=== PATIENT | male | born 1940 | race Hispanic/Latino ===

== ENCOUNTER 2024-06-20 08:47 | Observation (INO) | payer MEDICARE ==
[2024-06-19 09:41] LABS: BASOPHILS # (AUTO) 0.1 (0.0-0.1); EOSINOPHILS # (AUTO) 0.5 (0.0-0.4); EOSINOPHILS % 6.5 % (0.0-6.0); HEMOGLOBIN 17.7 g/dL (14.0-18.0); LYMPHOCYTES # (AUTO) 1.6 (1.0-3.2); LYMPHOCYTES % 21.1 % (18.0-39.1); MEAN CORPUSCULAR HEMOGLOBIN 33.3 pg (28-32); MEAN CORPUSCULAR HGB CONC 34.7 g/dL (31-35); MONOCYTES # (AUTO) 0.6 (0.2-0.8); MONOCYTES % 8.7 % (4.4-11.3); NEUTROPHILS # (AUTO) 4.6 (2.1-6.9); NEUTROPHILS % 62.4 % (38.7-80.0); PLATELET COUNT 216 x10e3/uL (140-360); RED BLOOD COUNT 5.31 x10e6/uL (4.3-5.7); RED CELL DISTRIBUTION WIDTH 12.9 % (11.7-14.4); WHITE BLOOD COUNT 7.35 x10e3/uL (4.8-10.8)
[2024-06-19 10:04] LABS: CALCIUM 9.4 mg/dL (8.4-10.2); CREATININE, SERUM 1.3 mg/dL (0.72-1.25)
[~2024-06-20] VITALS: Ht 160 cm; Wt 68.0 kg
[~2024-06-20 08:47] MED LIST: ALBUTEROL0.63 MG/3 NEB; AVODART0.5 MG PO; CITALOPRAM HBR20 MG PO; FAMOTIDINE20 MG PO; LEVOTHYROXINE88 MCG PO; MEMANTINE HCL10 MG PO; METAMUCIL FIBE3.4 GM PO; TRELEGY ELLIPT1 EACH INH; VITAMIN D250 MCG PO
[2024-06-20 10:13] LABS: ALBUMIN/GLOBULIN RATIO 1.2 (0.8-2.0); ANION GAP 14.1 mmol/L (8-16); BILIRUBIN,TOTAL 0.6 mg/dL (0.2-1.2); CALCIUM 9.4 mg/dL (8.4-10.2); CREATININE, SERUM 1.2 mg/dL (0.72-1.25); POTASSIUM 4.1 mmol/L (3.5-5.1); TOTAL PROTEIN 7.3 g/dL (6.5-8.1)
[2024-06-20 10:15] LABS: INR 1.14; PROTHROMBIN TIME 15.3 seconds (11.9-14.5)
[2024-06-20 10:16] LABS: PARTIAL THROMBOPLASTIN TIME 29.6 seconds (23.8-35.5)
[2024-06-20] MEDS: LACTATED RINGER'S 1,000 ML ONE (10:24)
[2024-06-20] MEDS: PIPERACILLIN/TAZOBACTAM 3.375 GM VIAL ONE (10:24)
[2024-06-20] MEDS ORDERED: ROCURONIUM BROMIDE 1 ML IV ONE (11:40)
[2024-06-20] MEDS ORDERED: SEVOFLURANE INHAL SOLN 250 ML PEN BTL ONE (11:40)
[2024-06-20] MEDS ORDERED: PROPOFOL IV EMULSION 10 MG/ML 20 ML VIAL ONE (11:40)
[2024-06-20] MEDS ORDERED: FENTANYL CITRATE/PF 100MCG/2 ML INJ ONE ×2 (11:40→16:15)
[2024-06-20] MEDS ORDERED: LIDOCAINE HCL 2% LOCAL INJ 5 ML SDV VIAL INJ ONE (11:40)
[2024-06-20] MEDS ORDERED: ACETAMINOPHEN 1000 MG/100 ML 100 ML IV ONE (11:40)
[2024-06-20] MEDS ORDERED: ONDANSETRON HCL INJ 2MG/ML 2ML 2 MG/ML VIAL ONE ×2 (14:02→16:16)
[2024-06-20] MEDS ORDERED: DEXAMETHASONE SOD PHOS INJ 4 MG/ML SDV ONE (14:02)
[2024-06-20] MEDS ORDERED: EPHEDRINE SULFATE INJ 50 MG/ML VIAL ONE ×2 (14:07→14:09)
[2024-06-20] MEDS ORDERED: SUGAMMADEX SODIUM 200 MG/2 ML VIAL IV ONE (16:16)
[2024-06-20] MEDS ORDERED: ACETAMINOPHEN/CODEINE 300MG - 30MG TAB PO PRN (16:30)
[2024-06-20] MEDS ORDERED: DIPHENHYDRAMINE HCL 25 MG CAP PO PRN (16:30)
[2024-06-20] MEDS ORDERED: ACETAMINOPHEN 1000 MG/100 ML IV PRN (16:30)
[2024-06-20] MEDS ORDERED: PHENAZOPYRIDINE HCL 100 MG TAB PO PRN (16:30)
[2024-06-20] MEDS ORDERED: HYDRALAZINE HCL 20 MG/ML VIAL ONE (16:34)
[2024-06-20] MEDS: SODIUM CHLORIDE 0.9% 1000ML 1,000 ML IV SCH (18:16)
[2024-06-20 19:35] VITALS: PULSE 90; RESP 16; O2SAT 94
[2024-06-20 20:00] VITALS: BP 124/71; PULSE 90; RESP 16; TEMP 98; O2SAT 94
[2024-06-20] MEDS: Vancomycin IV 1 GM in SODIUM CHLORIDE 0.9% 250ML 250 ML IV SCH (23:46)
[2024-06-21] VITALS (9 sets, daily range): BP systolic 107–126; BP diastolic 65–78; PULSE 65–90; RESP 16–19; TEMP 97.8–98.7; O2SAT 94–100
[2024-06-21 06:41] LABS: BASOPHILS % 0.2 % (0.0-1.0); EOSINOPHILS % 0.2 % (0.0-6.0); HEMATOCRIT 49.1 % (38.2-49.6); HEMOGLOBIN 16.8 g/dL (14.0-18.0); LYMPHOCYTES % 7.8 % (18.0-39.1); MEAN CORPUSCULAR HEMOGLOBIN 33.1 pg (28-32); MEAN CORPUSCULAR HGB CONC 34.2 g/dL (31-35); MEAN CORPUSCULAR VOLUME 96.7 fL (81-99); MONOCYTES # (AUTO) 0.7 (0.2-0.8); NEUTROPHILS # (AUTO) 10.6 (2.1-6.9); NEUTROPHILS % 85.3 % (38.7-80.0); PLATELET COUNT 212 x10e3/uL (140-360); RED BLOOD COUNT 5.08 x10e6/uL (4.3-5.7); RED CELL DISTRIBUTION WIDTH 13.2 % (11.7-14.4); WHITE BLOOD COUNT 12.37 x10e3/uL (4.8-10.8)
[2024-06-21 07:18] LABS: ANION GAP 15.9 mmol/L (8-16); CREATININE, SERUM 1.15 mg/dL (0.72-1.25); POTASSIUM 3.9 mmol/L (3.5-5.1)
[2024-06-21] MEDS: FAMOTIDINE 20 MG TAB PO SCH (11:52)
[2024-06-21] MEDS: DUTASTERIDE 0.5 MG CAP PO SCH (11:52)
[2024-06-21] MEDS: MEMANTINE 10 MG TAB PO SCH (11:52)
[2024-06-21] MEDS ORDERED: BENZONATATE 100 MG CAP PO PRN (23:45)
[2024-06-21] MEDS ORDERED: ONDANSETRON HCL INJ 2MG/ML 2ML 2 MG/ML VIAL IV PRN (23:45)
[2024-06-21] MEDS ORDERED: ALBUTEROL/IPRATROPIUM 3 ML NEB NEB PRN (23:45)
[2024-06-21] MEDS ORDERED: ACETAMINOPHEN 325 MG TAB PO PRN (23:45)
[2024-06-22] VITALS: BP 123/81; PULSE 76; RESP 20; TEMP 98.7; O2SAT 98
[2024-06-22 04:00] VITALS: BP 131/78; PULSE 73; RESP 20; TEMP 98.7; O2SAT 99
[2024-06-22] MEDS: LEVOTHYROXINE SODIUM 88 MCG TAB PO SCH (05:40)
[2024-06-22 06:30] LABS: BASOPHILS # (AUTO) 0.1 (0.0-0.1); BASOPHILS % 0.5 % (0.0-1.0); EOSINOPHILS # (AUTO) 0.1 (0.0-0.4); EOSINOPHILS % 0.9 % (0.0-6.0); HEMATOCRIT 46.7 % (38.2-49.6); HEMOGLOBIN 15.8 g/dL (14.0-18.0); LYMPHOCYTES # (AUTO) 1.5 (1.0-3.2); LYMPHOCYTES % 15.2 % (18.0-39.1); MEAN CORPUSCULAR HEMOGLOBIN 32.4 pg (28-32); MEAN CORPUSCULAR HGB CONC 33.8 g/dL (31-35); MEAN CORPUSCULAR VOLUME 95.7 fL (81-99); MONOCYTES # (AUTO) 1.1 (0.2-0.8); MONOCYTES % 10.9 % (4.4-11.3); NEUTROPHILS # (AUTO) 7.3 (2.1-6.9); NEUTROPHILS % 72.2 % (38.7-80.0); PLATELET COUNT 194 x10e3/uL (140-360); RED BLOOD COUNT 4.88 x10e6/uL (4.3-5.7); RED CELL DISTRIBUTION WIDTH 13.5 % (11.7-14.4); WHITE BLOOD COUNT 10.14 x10e3/uL (4.8-10.8)
[2024-06-22 07:03] LABS: ANION GAP 14.8 mmol/L (8-16); CALCIUM 8.8 mg/dL (8.4-10.2); CREATININE, SERUM 1.2 mg/dL (0.72-1.25); POTASSIUM 3.8 mmol/L (3.5-5.1)
[2024-06-22 07:56] VITALS: PULSE 79; RESP 16; O2SAT 97
[2024-06-22] MEDS: SODIUM CHLORIDE 0.9% 250ML 250 ML ONE (08:00)
[2024-06-22] MEDS: Vancomycin IV 1 GM VIAL ONE (08:01)
[2024-06-22] MEDS: CITALOPRAM HYDROBROMIDE 20 MG TAB PO SCH (08:22)
[2024-06-22 08:34] VITALS: BP 129/81; PULSE 81; RESP 18; TEMP 98.1; O2SAT 99
[2024-06-22] MEDS ORDERED: ONDANSETRON HCL 4 MG ORAL DISINTEGRATING TAB PO PRN (11:00)
== END 2024-06-22 11:05 | disposition home or self-care (01) ==
LOC: OR 08:47 → INTOOBSV 15:36 → PACU V 15:36 → MED/SURG3 17:45
PROVIDERS: ADMIT Urology; ATTEND Urology
DX: T83.490A Other mechanical complication of implanted penile prosthesis, initial encounter (principal); Y83.8 Other surgical procedures as the cause of abnormal reaction of the patient, or of later complication, without mention of misadventure at the time of the procedure; N39.0 Urinary tract infection, site not specified; N40.1 Benign prostatic hyperplasia with lower urinary tract symptoms; N13.8 Other obstructive and reflux uropathy; N20.0 Calculus of kidney; R35.1 Nocturia; N32.89 Other specified disorders of bladder; I10 Essential (primary) hypertension; J44.9 Chronic obstructive pulmonary disease, unspecified; E03.9 Hypothyroidism, unspecified; K74.60 Unspecified cirrhosis of liver; E66.9 Obesity, unspecified; F03.90 Unspecified dementia, unspecified severity, without behavioral disturbance, psychotic disturbance, mood disturbance, and anxiety; Z01.810 Encounter for preprocedural cardiovascular examination; Z01.812 Encounter for preprocedural laboratory examination; Z01.818 Encounter for other preprocedural examination; Z79.899 Other long term (current) drug therapy
CPT/HCPCS: 36415 ×4; 54410; 71046; 80048 ×3; 80053; 80202; 85025 ×3; 85610; 85730; 88300; 93005; 94799 ×3; C1813 ×2; G0378 ×3; J0131; J0360; J1100; J2003; J2405; J2543 ×4; J2704; J3010; J3370 ×2; J7030; J7050 ×2; J7121